=== PATIENT | female | born 1965 | race Caucasian/White ===

== ENCOUNTER 2017-11-26 07:07 | Inpatient (IN) | payer OTHER ==
[2017-11-20 14:38] VITALS: BMI 31.8
--- NOTE | 2017-11-25 09:58 | HP ---
Admitting History and Physical - Primary Care Physician PCP: Juan Carlos Rodriguez - Admission Chief Complaint: Right breast cancer with axillary nidhi metastatic dz, possible impfammatory nature History of Present Illness: 52 year old premenapausal female who presented with right breast swelling with skin changes and follow up mammogram showed subareolar thickening of breast and skin calcifications. She also developed right axillary tender nodule. She reports these changes started 2011 but accelrated 3 mos ago. 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 She is S/P neoadjuvant chemotherapy with a good response. History Source: Patient Limitations to Obtaining History: No Limitations - Past Medical History ...LMP Comment: 04/2017 ...: No Endocrine: Yes: Diabetes Mellitus - Past Surgical History Additional Past Surgical History: Right breast wide excision 04/2017 infiltrating ductal carcinoma right breast excision 2014 - Smoking History Smoking history: Never smoked Have you smoked in the past 12 months: No - Alcohol/Substance Use Hx Alcohol Use: No Home Medications - Allergies Allergies/Adverse Reactions: Allergies Allergy/AdvReac Type Severity Reaction Status Date / Time No Known Allergies Allergy Verified 11/20/17 14:14 - Home Medications Home Medications: Ambulatory Orders Calcium Carbonate/Vitamin D3 [Calcium 600+D Softgel] 1 cap PO DAILY 11/20/17 Metformin HCl 500 mg PO DAILY 11/20/17 Omeprazole 40 mg PO DAILY 11/20/17 Family Disease History - Family Disease History Family History: Denies Physical Examination Constitutional: Yes: Well Nourished Breast(s): Yes: Other (Well healed circumareolar right breast incision, Breast are diffusely nodular ,some improvement in skin changes and adenpathy) Problem List - Problems (1) Breast cancer, right Code(s): C50.911 - MALIGNANT NEOPLASM OF UNSP SITE OF RIGHT FEMALE BREAST Qualifiers: Breast location: central portion of breast Patient sex: female Assessment/Plan Right modified radical mastectomy with out reconstruction
[2017-11-26] MEDS ORDERED: LIDOCAINE HCL 1%, 10 MG/ML (20ML VIAL) ONE (08:07)
[2017-11-26] MEDS ORDERED: BUPIVACAINE HCL/PF 2.5 MG/ML - 30 ML VIAL IJ ONE (08:07)
[2017-11-26] MEDS ORDERED: PROPOFOL 20 ML ONE ×2 (08:46)
[2017-11-26] MEDS ORDERED: ROCURONIUM BROMIDE 50 MG/5 ML VIAL ONE (08:46)
[2017-11-26] MEDS ORDERED: fentaNYL CITRATE 250 MCG/5 ML VIAL ONE (08:46)
[2017-11-26] MEDS ORDERED: MIDAZOLAM HCL 2 MG/2 ML SINGLE DOSE VIAL ONE (08:46)
[2017-11-26] MEDS ORDERED: SUCCINYLCHOLINE CHLORIDE 200 MG/10 ML VIAL ONE (08:46)
[2017-11-26] MEDS ORDERED: GLYCOPYRROLATE 0.2 MG/1 ML VIAL ONE (11:02)
[2017-11-26] MEDS ORDERED: NEOSTIGMINE METHYLSULFATE 0.5 MG/ML - 10 ML MDV ONE (11:03)
[2017-11-26] MEDS ORDERED: ESMOLOL HCL 100,000 MCG/10 ML VIAL ONE (11:06)
[2017-11-26] MEDS ORDERED: hydrOXYzine HCL 100 MG/2 ML VIAL IM PRN (11:41)
[2017-11-26] MEDS ORDERED: oxyCODONE HCL 5 MG TABLET PO PRN ×3 (11:41→11:47)
[2017-11-26] MEDS ORDERED: ONDANSETRON 4 MG/2 ML VIAL IVPUSH PRN ×2 (11:41→11:47)
[2017-11-26] MEDS ORDERED: ACETAMINOPHEN 325 MG TABLET (FP) PO PRN (11:41)
[2017-11-26] MEDS ORDERED: MEPERIDINE HCL CARPU-JECT 50 MG/1 ML DISP.SYRIN IM PRN (11:41)
[2017-11-26] MEDS ORDERED: ZOLPIDEM TARTRATE 5 MG TABLET PO PRN (11:41)
[2017-11-26] MEDS ORDERED: PROMETHAZINE HCL 25 MG/1 ML VIAL IVPUSH PRN (11:47)
[2017-11-26] MEDS ORDERED: LACTATED RINGERS SOLUTION 1,000 ML IV SCH (12:00)
[2017-11-26] MEDS ORDERED: ONDANSETRON 4 MG/2 ML VIAL ONE (12:13)
--- NOTE | 2017-11-26 14:14 | CONSULT ---
Consultation: REQUESTING PROVIDER: Dr Torrez CONSULT REQUEST: We have been asked to medically evaluate this patient for ( specify). HISTORY OF PRESENT ILLNESS: Patient is a 52 y/o female with a past medical history of DM, gallstone pancreatitis (s/p cholecytectomy), right breast cancer with axillary nidhi metastic disease. patient is s/p radical masectomy, 11/26/17 (Lore). patient was noted to be hyperglycemic postoperatively. Patient reports discontinuing her metformin on 2months because she was feeling fell after chemo. REVIEW OF SYSTEMS: CONSTITUTIONAL: Absent: fever, chills, diaphoresis, generalized weakness, malaise, loss of appetite, weight change HEENT: Absent: rhinorrhea, nasal congestion, throat pain, throat swelling, difficulty swallowing, mouth swelling, ear pain, eye pain, visual changes CARDIOVASCULAR: Absent: chest pain, syncope, palpitations, irregular heart rate, lightheadedness , peripheral edema RESPIRATORY: Absent: cough, shortness of breath, dyspnea with exertion, orthopnea, wheezing, stridor, hemoptysis GASTROINTESTINAL: Absent: abdominal pain, abdominal distension, nausea, vomiting, diarrhea, constipation, melena, hematochezia GENITOURINARY: Absent: dysuria, frequency, urgency, hesitancy, hematuria, flank pain, genital pain MUSCULOSKELETAL: present: pain to the right chest Absent: myalgia, arthralgia, joint swelling, back pain, neck pain SKIN: Absent: rash, itching, pallor HEMATOLOGIC/IMMUNOLOGIC: Absent: easy bleeding, easy bruising, lymphadenopathy, frequent infections ENDOCRINE: Absent: unexplained weight gain, unexplained weight loss, heat intolerance, cold intolerance NEUROLOGIC: Absent: headache, focal weakness or paresthesias, dizziness, unsteady gait, seizure, mental status changes, bladder or bowel incontinence PSYCHIATRIC: Absent: anxiety, depression, suicidal or homicidal ideation, hallucinations. PHYSICAL EXAMINATION Vital Signs - 24 hr 11/26/17 11/26/17 11/26/17 07:48 11:43 11:45 Temperature 98.9 F 100.1 F H 100.1 F H Pulse Rate 74 81 78 Respiratory 18 14 12 Rate Blood Pressure 122/76 110/58 100/54 O2 Sat by Pulse 96 97 Oximetry (%) 11/26/17 11/26/17 11/26/17 11:50 11:55 12:00 Temperature Pulse Rate 74 79 78 Respiratory 13 13 15 Rate Blood Pressure 97/48 103/48 98/52 O2 Sat by Pulse 98 97 98 Oximetry (%) 11/26/17 11/26/17 11/26/17 12:15 12:30 12:45 Temperature 98.3 F 98.3 F Pulse Rate 85 81 78 Respiratory 15 14 13 Rate Blood Pressure 102/49 97/45 98/48 O2 Sat by Pulse 98 99 99 Oximetry (%) 11/26/17 11/26/17 13:00 13:35 Temperature 98.3 F 98.5 F Pulse Rate 74 76 Respiratory 14 20 Rate Blood Pressure 98/50 116/61 O2 Sat by Pulse 99 Oximetry (%) GENERAL: Awake, alert, and fully oriented, in no acute distress. HEAD: Normal with no signs of trauma. EYES: Pupils equal, round and reactive to light, extraocular movements intact, sclera anicteric, conjunctiva clear. No lid lag. EARS, NOSE, THROAT: Ears normal, nares patent, oropharynx clear without exudates. Moist mucous membranes. NECK: Normal range of motion, supple without lymphadenopathy, JVD, or masses. LUNGS: Breath sounds equal, clear to auscultation bilaterally. No wheezes, and no crackles. No accessory muscle use. HEART: Regular rate and rhythm, normal S1 and S2 without murmur, rub or gallop. ABDOMEN: Soft, nontender, not distended, normoactive bowel sounds, no guarding, no rebound, no masses. No hepatomegaly or splenomegaly. MUSCULOSKELETAL: Normal range of motion at all joints. No bony deformities or tenderness. No CVA tenderness. UPPER EXTREMITIES: 2+ pulses, warm, well-perfused. No cyanosis. No clubbing. Cap refill <2 seconds. No peripheral edema. LOWER EXTREMITIES: 2+ pulses, warm, well-perfused. No calf tenderness. No peripheral edema. NEUROLOGICAL: Cranial nerves II-XII intact. Normal speech. Normal gait. PSYCHIATRIC: Cooperative. Good eye contact. Appropriate mood and affect. SKIN: Warm, dry, normal turgor, no rashes or lesions noted. chest binder in place, surgical dressing intact, CDI Laboratory Results - last 24 hr 11/26/17 11/26/17 11/26/17 07:30 08:11 11:52 POC Glucometer 294 262 Urine HCG, Qual Negative Active Medications Generic Name Dose Route Start Last Admin Trade Name Freq PRN Reason Stop Dose Admin Acetaminophen 650 mg 11/26/17 11:41 Tylenol - PO Q4H PRN FEVER Fentanyl 50 mcg 11/26/17 11:47 11/26/17 12:10 Sublimaze Injection - IVPUSH 25 mcg [id number] PRN Administration PAIN-PACU ORDER X 4 DOSES ONLY Heparin Sodium (Porcine) 5,000 unit 11/27/17 08:00 Heparin - SQ BID@0800,2000 [facility] Hydroxyzine HCl 25 mg 11/26/17 11:41 Vistaril Injection - IM Q6H PRN FOR ITCHING Cefazolin Sodium 1 gram in 50 mls @ 100 mls/hr 11/26/17 15:00 Ancef 1 Gm Premixed Ivpb - IVPB 12/03/17 14:59 Q6H-IV DEO Sodium Chloride 1,000 mls @ 75 mls/hr 11/26/17 12:00 1/2 Normal Saline IV ASDIR [facility] Meperidine HCl 50 mg 11/26/17 11:41 Demerol Injection - IM Q6H PRN PAIN SCALE 8-10 Metformin HCl 500 mg 11/27/17 07:00 Glucophage - PO ACBK [facility] Ondansetron HCl 4 mg 11/26/17 11:41 11/26/17 12:12 Zofran Injection IVPUSH 4 mg Q6H PRN Administration NAUSEA AND/OR VOMITING Oxycodone HCl 5 mg 11/26/17 11:41 Roxicodone - PO Q4H PRN PAIN LEVEL 2-4 Oxycodone HCl 10 mg 11/26/17 11:47 Roxicodone - PO Q6H PRN PAIN LEVEL 5-7 Pantoprazole Sodium 40 mg 11/27/17 10:00 Protonix - PO DAILY [facility] Promethazine HCl 12.5 mg 11/26/17 11:47 Phenergan Injection - IVPUSH Q6H PRN NAUSEA-FOR RESCUE AFTER 15 MIN Zolpidem Tartrate 5 mg 11/26/17 11:41 Ambien - PO HS PRN Insomnia ASSESSMENT/PLAN: 1) heme/onc right breast CA axillary nidhi metastic s/p right radical masectomy, POD #0 - prn pain medications - incentive spirometer - monitor hgb - Dr Torrez following 2) endo DM - pt reports discontinuing metformin due to GI upset while undergoing chemo - hgb a1c on 11/21/17 was 6.8 - start fingerstick achs with regular insulin sliding scale - pending hemoglobin a1c f/e/n - diabetic diet ppx - protonix - heparin - scd Dispo: We will continue to follow the patient. Thank you for this consultative opportunity. Visit type - Emergency Visit Emergency Visit: No - New Patient This patient is new to me today: Yes Date on this admission: 11/26/17 - Critical Care Critical Care patient: No
[2017-11-26] MEDS: CEFAZOLIN 1 GM/D5W 1 GRAM/50 ML BAG IVPB SCH ×2 (15:45→21:52)
[2017-11-26] MEDS: oxyCODONE HCL 5 MG TABLET PO PRN (15:45)
[2017-11-27] MEDS: CEFAZOLIN 1 GM/D5W 1 GRAM/50 ML BAG IVPB SCH ×4 (03:00→20:46)
[2017-11-27] MEDS: metFORMIN HCL 500 MG TABLET (FP) PO SCH (06:15)
[2017-11-27] MEDS: oxyCODONE HCL 5 MG TABLET PO PRN (06:15)
[2017-11-27] MEDS ORDERED: INSULIN (NOVOLOG) ASPART 100 UNITS/ML 10ML VIAL ONE ×5 (06:24→22:05)
[2017-11-27] MEDS: INSULIN SLIDING SCALE (NOVOLOG) 1 VIAL SQ SCH ×4 (06:26→22:06)
--- NOTE | 2017-11-27 08:56 | PN ---
Progress Note, Physician Chief Complaint: Right breast cancer with axillary metastatic disease S/P Right modified radical mastectomy POD#1 History of Present Illness: patient is eating , pain manage with oxycocone prn, no nausea or vomiting, CBC pending and HGBA1C, glucose 297, seen by hospitalist on insulin sliding scale - Current Medication List Current Medications: Active Medications Acetaminophen (Tylenol -) 650 mg PO Q4H PRN PRN Reason: FEVER Heparin Sodium (Porcine) (Heparin -) 5,000 unit SQ BID@0800,2000 [facility] Hydroxyzine HCl (Vistaril Injection -) 25 mg IM Q6H PRN PRN Reason: FOR ITCHING Cefazolin Sodium (Ancef 1 Gm Premixed Ivpb -) 1 gram in 50 mls @ 100 mls/hr IVPB Q6H-IV [facility]O Stop: 12/03/17 14:59 Last Admin: 11/27/17 03:00 Dose: 100 mls/hr Sodium Chloride (1/2 Normal Saline) 1,000 mls @ 75 mls/hr IV ASDIR [facility] Insulin Aspart (Novolog Vial Sliding Scale -) 1 vial SQ ACHS [facility] PRN Reason: Protocol Last Admin: 11/27/17 06:26 Dose: 6 units Meperidine HCl (Demerol Injection -) 50 mg IM Q6H PRN PRN Reason: PAIN SCALE 8-10 Metformin HCl (Glucophage -) 500 mg PO ACBK [facility] Last Admin: 11/27/17 06:15 Dose: 500 mg Ondansetron HCl (Zofran Injection) 4 mg IVPUSH Q6H PRN PRN Reason: NAUSEA AND/OR VOMITING Last Admin: 11/26/17 12:12 Dose: 4 mg Oxycodone HCl (Roxicodone -) 5 mg PO Q4H PRN PRN Reason: PAIN LEVEL 2-4 Oxycodone HCl (Roxicodone -) 10 mg PO Q6H PRN PRN Reason: PAIN LEVEL 5-7 Last Admin: 11/27/17 06:15 Dose: 10 mg Pantoprazole Sodium (Protonix -) 40 mg PO DAILY [facility] Zolpidem Tartrate (Ambien -) 5 mg PO HS PRN PRN Reason: Insomnia - Objective Vital Signs: Vital Signs Temperature 98.7 F 11/27/17 04:00 Pulse Rate 81 11/27/17 04:00 Respiratory Rate 11/27/17 04:00 Blood Pressure 99/51 11/27/17 04:00 O2 Sat by Pulse Oximetry (%) 94 L 11/27/17 08:21 Constitutional: Yes: No Distress Breast(s): Yes: Other (Right chest wall flap viable incision intact with steristrips, no infection or echymosis, bri drain functioning well) Problem List - Problems (1) Breast cancer, right Code(s): C50.911 - MALIGNANT NEOPLASM OF UNSP SITE OF RIGHT FEMALE BREAST Qualifiers: Breast location: central portion of breast Patient sex: female Assessment/Plan CBC, HGBA1C pending cont oxycodone prn spirometry SQ heparin SDC insulin sliding scale per Hospitalist who is following her diabetes Plan for discharge tomorrow
[2017-11-27] MEDS: HEPARIN NA (PORCINE) 5,000 UNITS/ML 1ML VIAL SQ SCH ×2 (08:57→20:46)
[2017-11-27] MEDS: PANTOPRAZOLE 40 MG TABLET (FP) PO SCH (09:01)
[2017-11-27 09:23] LABS: ANION GAP 8 (8-16); BLOOD UREA NITROGEN 15 mg/dl (7-18); CALCIUM 8.9 mg/dl (8.4-10.2); CHLORIDE 98 mmol/L (98-107); CO2 24 mmol/L (22-28); GLUCOSE,RANDOM 252 mg/dl (74-106); MAGNESIUM 1.8 mg/dL (1.8-2.4); POTASSIUM 3.7 mmol/L (3.5-5.1); SODIUM 130 mmol/L (136-145)
[2017-11-27 09:35] LABS: HEMATOCRIT 31.4 % (32.4-45.2); HEMOGLOBIN 11.3 GM/dl (10.7-15.3); MCH 33.1 pg (25.7-33.7); MEAN CELL VOLUME 91.8 fl (80-96); MEAN PLT VOLUME 7.4 fl (7.5-11.1); PLATELET COUNT 187 K/MM3 (134-434); RBC 3.42 M/mm3 (3.60-5.2); RDW 13.9 % (11.6-15.6); WHITE BLOOD COUNT 7.6 K/mm3 (4.0-10.8)
[2017-11-27 09:56] LABS: CREATININE < 0.8 mg/dl (0.6-1.3)
[2017-11-27] MEDS ORDERED: PATIENT'S OWN MEDICATION (NON-FORMULARY) (Omeprazole [Omeprazole] 40 MG) PO SCH (10:00)
[2017-11-27] MEDS ORDERED: MAGNESIUM SULFATE 2 GM in SODIUM CHLORIDE 100 ML IVPB ONE (10:10)
[2017-11-27] MEDS ORDERED: MAGNESIUM SULFATE IN WATER 2 GM/50 ML IVPB IVPB ONE (10:30)
--- NOTE | 2017-11-27 12:33 | PN ---
Physical Exam: SUBJECTIVE: Patient seen and examined, sitting in bedside chair, reports pain is better controlled, tolerating meals. OBJECTIVE:Patient is a 52 y/o female with a past medical history of DM, gallstone pancreatitis (s/p cholecytectomy), right breast cancer with axillary nidhi metastic disease. patient is s/p radical masectomy, 11/26/17 (Lore). Vital Signs Period Temp Pulse Resp BP Sys/Elliott Pulse Ox Last 24 Hr 98.0 F-98.8 F 74-93 13-20 93-135/42-75 92-99 GENERAL: The patient is awake, alert, and fully oriented, in no acute distress. HEAD: Normal with no signs of trauma. EYES: PERRL, extraocular movements intact, sclera anicteric, conjunctiva clear. No ptosis. ENT: Ears normal, nares patent, oropharynx clear without exudates, moist mucous membranes. NECK: Trachea midline, full range of motion, supple. LUNGS: Breath sounds equal, clear to auscultation bilaterally, no wheezes, no crackles, no accessory muscle use. HEART: Regular rate and rhythm, S1, S2 without murmur, rub or gallop. ABDOMEN: Soft, nontender, nondistended, normoactive bowel sounds, no guarding, no rebound, no hepatosplenomegaly, no masses. EXTREMITIES: 2+ pulses, warm, well-perfused, no edema. NEUROLOGICAL: Cranial nerves II through XII grossly intact. Normal speech, gait not observed. PSYCH: Normal mood, normal affect. SKIN: chest binder in placed, JOLIE x 1 sangenous drainage, right breast, surgical dressing in place, Warm, dry, normal turgor, no rashes or lesions noted Laboratory Results - last 24 hr 11/27/17 11/27/17 11/27/17 06:19 08:30 08:30 WBC 7.6 RBC 3.42 L Hgb 11.3 Hct 31.4 L MCV 91.8 MCH 33.1 MCHC 36.0 RDW 13.9 Plt Count 187 MPV 7.4 L Sodium 130 L Potassium 3.7 Chloride 98 Carbon Dioxide 24 Anion Gap 8 BUN 15 Creatinine < 0.8 POC Glucometer 297 Random Glucose 252 H Calcium 8.9 Magnesium 1.8 11/27/17 11:44 WBC RBC Hgb Hct MCV MCH MCHC RDW Plt Count MPV Sodium Potassium Chloride Carbon Dioxide Anion Gap BUN Creatinine POC Glucometer 284 Random Glucose Calcium Magnesium Active Medications Generic Name Dose Route Start Last Admin Trade Name Freq PRN Reason Stop Dose Admin Acetaminophen 650 mg 11/26/17 11:41 Tylenol - PO Q4H PRN FEVER Heparin Sodium (Porcine) 5,000 unit 11/27/17 08:00 11/27/17 08:57 Heparin - SQ 5,000 unit BID@0800,2000 [facility] Administration Hydroxyzine HCl 25 mg 11/26/17 11:41 Vistaril Injection - IM Q6H PRN FOR ITCHING Cefazolin Sodium 1 gram in 50 mls @ 100 mls/hr 11/26/17 15:00 11/27/17 08:57 Ancef 1 Gm Premixed Ivpb - IVPB 12/03/17 14:59 100 mls/hr Q6H-IV DEO Administration Sodium Chloride 1,000 mls @ 75 mls/hr 11/26/17 12:00 1/2 Normal Saline IV ASDIR [facility] Insulin Aspart 1 vial 11/26/17 16:30 11/27/17 11:52 Novolog Vial Sliding Scale - SQ 6 units ACHS DEO Administration Protocol Meperidine HCl 50 mg 11/26/17 11:41 Demerol Injection - IM Q6H PRN PAIN SCALE 8-10 Metformin HCl 500 mg 11/27/17 07:00 11/27/17 06:15 Glucophage - PO 500 mg ACBK [facility] Administration Ondansetron HCl 4 mg 11/26/17 11:41 11/26/17 12:12 Zofran Injection IVPUSH 4 mg Q6H PRN Administration NAUSEA AND/OR VOMITING Oxycodone HCl 5 mg 11/26/17 11:41 Roxicodone - PO Q4H PRN PAIN LEVEL 2-4 Oxycodone HCl 10 mg 11/26/17 11:47 11/27/17 06:15 Roxicodone - PO 10 mg Q6H PRN Administration PAIN LEVEL 5-7 Pantoprazole Sodium 40 mg 11/27/17 10:00 11/27/17 09:01 Protonix - PO 40 mg DAILY [facility] Administration Zolpidem Tartrate 5 mg 11/26/17 11:41 Ambien - PO HS PRN Insomnia ASSESSMENT/PLAN: 1) heme/onc right breast CA axillary nidhi metastic s/p right radical masectomy, POD #1 - prn pain medications - incentive spirometer - hgb stable - Dr Torrez following 2) endo DM - pt reports discontinuing metformin due to GI upset while undergoing chemo - hgb a1c on 11/21/17 was 6.8, pending hgb a1c today - fingerstick achs with regular insulin sliding scale continue f/e/n - diabetic diet - dietary consult ppx - protonix - heparin - scd Dispo: We will continue to follow the patient. Thank you for this consultative opportunity. Visit type - Emergency Visit Emergency Visit: No - New Patient This patient is new to me today: No - Critical Care Critical Care patient: No - Discharge Referral Referred to [facility] Med P.C.: No
[2017-11-27] MEDS: SODIUM CHLORIDE 0.45% 1,000 ML IV SCH (14:58)
[2017-11-28] MEDS: CEFAZOLIN 1 GM/D5W 1 GRAM/50 ML BAG IVPB SCH ×3 (02:33→15:16)
[2017-11-28] MEDS: INSULIN SLIDING SCALE (NOVOLOG) 1 VIAL SQ SCH ×3 (06:41→17:28)
[2017-11-28] MEDS ORDERED: INSULIN (NOVOLOG) ASPART 100 UNITS/ML 10ML VIAL ONE ×2 (06:41→11:46)
[2017-11-28] MEDS: metFORMIN HCL 500 MG TABLET (FP) PO SCH (06:42)
[2017-11-28] MEDS: HEPARIN NA (PORCINE) 5,000 UNITS/ML 1ML VIAL SQ SCH (08:26)
--- NOTE | 2017-11-28 09:29 | PN ---
Progress Note, Physician Chief Complaint: S/P right MRM POD#2 History of Present Illness: Patient was seen today at the bedside and reports good pain control and appetite. - Current Medication List Current Medications: Active Medications Acetaminophen (Tylenol -) 650 mg PO Q4H PRN PRN Reason: FEVER Heparin Sodium (Porcine) (Heparin -) 5,000 unit SQ BID@0800,2000 [facility] Last Admin: 11/28/17 08:26 Dose: 5,000 unit Hydroxyzine HCl (Vistaril Injection -) 25 mg IM Q6H PRN PRN Reason: FOR ITCHING Cefazolin Sodium (Ancef 1 Gm Premixed Ivpb -) 1 gram in 50 mls @ 100 mls/hr IVPB Q6H-IV [facility] Stop: 12/03/17 14:59 Last Admin: 11/28/17 08:27 Dose: 100 mls/hr Sodium Chloride (1/2 Normal Saline) 1,000 mls @ 75 mls/hr IV ASDIR [facility] Last Admin: 11/27/17 14:58 Dose: Not Given Insulin Aspart (Novolog Vial Sliding Scale -) 1 vial SQ ACHS [facility] PRN Reason: Protocol Last Admin: 11/28/17 06:41 Dose: 4 units Meperidine HCl (Demerol Injection -) 50 mg IM Q6H PRN PRN Reason: PAIN SCALE 8-10 Metformin HCl (Glucophage -) 500 mg PO ACBK [facility] Last Admin: 11/28/17 06:42 Dose: 500 mg Ondansetron HCl (Zofran Injection) 4 mg IVPUSH Q6H PRN PRN Reason: NAUSEA AND/OR VOMITING Last Admin: 11/26/17 12:12 Dose: 4 mg Oxycodone HCl (Roxicodone -) 5 mg PO Q4H PRN PRN Reason: PAIN LEVEL 2-4 Last Admin: 11/28/17 07:16 Dose: 5 mg Oxycodone HCl (Roxicodone -) 10 mg PO Q6H PRN PRN Reason: PAIN LEVEL 5-7 Last Admin: 11/27/17 06:15 Dose: 10 mg Pantoprazole Sodium (Protonix -) 40 mg PO DAILY [facility] Last Admin: 11/27/17 09:01 Dose: 40 mg Zolpidem Tartrate (Ambien -) 5 mg PO HS PRN PRN Reason: Insomnia - Objective Vital Signs: Vital Signs Temperature 98.8 F 11/28/17 06:00 Pulse Rate 66 11/28/17 06:00 Respiratory Rate 18 11/28/17 08:51 Blood Pressure 96/47 11/28/17 06:00 O2 Sat by Pulse Oximetry (%) 95 11/28/17 08:51 Constitutional: Yes: Well Nourished, Calm Breast(s): Yes: Other (Right chest without swelling noted. Steristrips are intact without discharge or erythema noted. JPs x 2 with serosanginous drainage.) Wound/Incision: Yes: Clean/Dry Labs: CBC, BMP 11/27/17 08:30 11/27/17 08:30 Problem List - Problems (1) Breast cancer, right Code(s): C50.911 - MALIGNANT NEOPLASM OF UNSP SITE OF RIGHT FEMALE BREAST Qualifiers: Breast location: central portion of breast Patient sex: female Assessment/Plan Plan: Discharge home today and make f/u appt next week. Teach JOLIE monitoring and recording Pain meds prn and axbx at home Followup with vertica architect/PCP for monitoring of diabetes
[2017-11-28] MEDS: PANTOPRAZOLE 40 MG TABLET (FP) PO SCH (09:33)
--- NOTE | 2017-11-28 10:40 | OP ---
DATE OF OPERATION: 11/26/2017 PREOPERATIVE DIAGNOSIS: Right breast cancer. POSTOPERATIVE DIAGNOSIS: Right breast cancer. PROCEDURE: Right modified radical mastectomy with excision of incidental, intramuscular lipoma. ANESTHESIA: General . ATTENDING SURGEON: Mega Rodriguez MD POULTRY FARMER: DVEANTE Padilla ESTIMATED BLOOD LOSS: Minimal. COMPLICATIONS: None. PROCEDURE: The patient was made aware of the risks and benefits of the procedure and consented. The patient had a modified radical mastectomy, indicated by the fact that she had pre-neoadjuvant chemotherapy matted nodes with a possible inflammatory component with skin involvement. Despite being offered Plastic Surgery reconstruction and consultation, she declined and wishes to be left flat. After obtaining consent, the patient was placed in the supine position. After general anesthesia was induced, the patient was intubated. The operative site was prepped and draped in the usual sterile fashion. An elliptical incision was made around the nipple encompassing most of the skin. Using electrocautery, skin flaps were made superior to the clavicle, medial to the sternum, laterally to the latissimus dorsi, and inframammary fold. Using electrocautery, the breast tissue was taken off the pectoralis muscle, including pectoral fascia, extending laterally to the. The pectoral-clavicle fascia was incised, revealing the axillary vein. Dissecting along the chest wall, the long thoracic nerve was identified and preserved. It was dissected free and retraced medially. Laterally, the thoracodorsal trunk was identified and retracted laterally and the tissues between the two were bluntly and sharply dissected free, using hemoclips for some hemostasis as well as electrocautery. This was submitted as right modified radical mastectomy with a short suture superior, long lateral. Investigation of the axilla revealed no other suspicious lymph nodes. In the pectoralis muscle substance, there was a 4-cm, benign-appearing lipoma. The muscle fibers were split and the lipoma was bluntly dissected free and submitted as a separate specimen. Palpation of the rest of that area revealed nothing suspicious. Through inferior stab wounds, number-10 Brett-Chowdhury drains were placed and sutured to the skin with 2-0 silk. The skin was then closed with interrupted 2-0 Vicryl, followed by running 3-0 Vicryl, followed by running 4-0 Monocryl. Steri-Strips, a sterile dressing, and an Justino wrap were then applied, and the patient having tolerated the procedure well was returned to the recovery room in excellent condition. MEGA RODRIGUEZ M.D. AVILA/[id number]
[2017-11-28] MEDS: SODIUM CHLORIDE 0.45% 1,000 ML IV SCH (12:12)
[2017-11-28 17:27] VITALS: BP 120/66; PULSE 76; TEMP 98.1
--- NOTE | 2017-12-02 15:00 | PATH ---
Surgical Pathology Report Patient Name: TAWANDA SANTOS Med. Rec. #: [id number] /Age/Gender: 1965 (Age: 52) / F Account: [id number] Location: [facility]URG Taken: 11/26/2017 Received: 11/26/2017 Reported: 12/02/2017 Physicians: Juan Carlos Rodriguez M.D. Specimen(s) Received A: RIGHT INTRA-PECTORAL LIPOMA B: RIGHT MODIFIED RADICAL MASTECTOMY Clinical History Rt breast CA Final Diagnosis A. INTRA-PECTORAL LIPOMA, RIGHT, EXCISION: MATURE ADIPOSE TISSUE, CONSISTENT WITH LIPOMA. B. BREAST AND AXILLARY LYMPH NODES, RIGHT, MODIFIED RADICAL MASTECTOMY: THREE FOCI OF RESIDUAL INVASIVE DUCTAL CARCINOMA, MODERATELY TO POORLY DIFFERENTIATED RANGING FROM 1-3 MM IN GREATEST DIMENSION, MICROSCOPICALLY, PRESENT IN A BACKGROUND OF DENSE HYALINIZING FIBROSIS AND HISTIOCYTIC/ GIANT CELL REACTION, CONSISTENT WITH PRIOR TREATED TUMOR BED TISSUE. (SEE NOTE) THE TUMOR BED TISSUE IS COMPRISED PREDOMINANTLY OF HYALINIZING FIBROSIS, CONSISTENT WITH PROMINENT TREATMENT-EFFECT, WITH RESIDUAL INVASIVE CARCINOMA COMPRISING UP TO 5% OF TOTAL TUMOR BED VOLUME. FOCAL DUCTAL CARCINOMA IN SITU (DCIS), SOLID AND MICROPAPILLARY TYPE, INTERMEDIATE NUCLEAR GRADE. SURGICAL MARGINS ARE UNINVOLVED BY INVASIVE CARCINOMA AND DCIS. FOCAL LYMPHOVASCULAR INVASION IS IDENTIFIED. SKIN AND NIPPLE SHOWING DENSE DERMAL FIBROSIS, CONSISTENT WITH TREATMENT-EFFECT. METASTATIC CARCINOMA INVOLVING TWO OF THIRTY-TWO LYMPH NODES (2/32), WITH THE FOCI OF METASTATIC CARCINOMA MEASURING 2 MM AND 9 MM IN GREATEST DIMENSION, MICROSCOPICALLY. FOCAL EXTRANODAL EXTENSION IS IDENTIFIED. (SEE NOTE) PATHOLOGIC STAGE (ypTNM): ypT1a (m) ypN1a. Note: Myoepithelial immunohistochemical markers (SMM-HC and p63) and cytokeratin (AE1/3) immunostain (performed at [facility]) were used in the evaluation of one of the foci of invasive carcinoma, with the findings supporting the diagnosis. (See also prior slide review case: our case # [id number] case # [id number]). The lymph node showing the smaller focus of metastatic carcinoma also shows prominent dense hyalinizing fibrosis/scar, suggesting partial treatment-effect in a lymph node with more extensive metastatic disease. An additional lymph node also shows dense hyalinizing fibrosis/scar with no residual metastatic carcinoma, consistent with treated metastatic carcinoma. Comments Breast Invasive Carcinoma: Surgical Pathology Case Summary (Based on AJCC TNM 8 th edition) Procedure _X_ Total mastectomy (modified radical) Specimen Laterality _X_ Right Tumor Size _X_ Greatest dimension of largest invasive focus >1 mm) (millimeters): 3 mm Histologic Type _X_ Invasive carcinoma with medullary features/ invasive carcinoma NOS Histologic Grade (Ismael Histologic Score) Glandular (Acinar)/Tubular Differentiation _X_Score 2 (10 -75 % of tumor area forming glandular/tubular structures) to score 3 (<10% of tumor area forming glandular/tubular structures) Nuclear Pleomorphism _X_ Score 3 Mitotic Rate _X_ Score 2 Overall Grade _X_ Grade 2 (scores 6 or 7) to grade 3 (scores of 8 or 9) Tumor Focality _X_ Multiple foci of invasive carcinoma Number of foci: 3 Sizes of individual foci: 3 mm, 1 mm, 1 mm Ductal Carcinoma In Situ (DCIS) _X_ DCIS is present in specimen _X_ Negative for extensive intraductal component (EIC) Margins Invasive Carcinoma Margins _X_ Uninvolved by invasive carcinoma _X_ Cannot be determined: there is no ink on tissue sections with foci of residual carcinoma. DCIS Margins _X_ Uninvolved by DCIS _X_ Cannot be determined: there is no ink on tissue sections with foci of DCIS. Regional Lymph Nodes Number of Lymph Nodes with Macrometastases (>2 mm): 1 Number of Lymph Nodes with Micrometastases (>0.2 mm to 2 mm and/or >200 cells): 1 (see note) Number of Lymph Nodes with Isolated Tumor Cells (=0.2 mm and =200 cells): 0 Size of Largest Metastatic Deposit (millimeters): 9 mm Note: The lymph node with the smaller focus (2 mm) of metastatic carcinoma also shows extensive fibrosis and scarring, suggestive of more extensive metastatic involvement prior to treatment. Extranodal Extension: _X_ Present (focal) Number of Lymph Nodes Examined: 32 Number of [place] Nodes Examined: 0 Treatment Effect Treatment Effect in the Breast _X_ Probable or definite response to presurgical therapy in the invasive carcinoma Treatment Effect in the Lymph Nodes _X_ Probable or definite response to presurgical therapy in metastatic carcinoma Lymphovascular Invasion _X_ Present Pathologic Stage Classification (pTNM, AJCC 8th Edition) TNM Descriptors _X_ m (multiple foci of invasive carcinoma) _X_ y (posttreatment) Primary Tumor (Invasive Carcinoma) (pT) _X_ ypT1a (m): Tumor >1 mm but =5 mm in greatest dimension (round any measurement >1.0-1.9mm to 2 mm) Regional Lymph Nodes (pN) Modifier (required only if applicable) Category (pN) _X_ ypN1a: Metastases in 1 to 3 axillary lymph nodes, at least 1 metastasis larger than 2.0 mm Biomarker Studies Results of ER, MA ,Her2 & Ki67 studies will be reported separately in an addendum. Electronically Signed Ayala Emmanuel M.D. Addendum Reported: 12/06/2017 Addendum Diagnosis Results of ER, MA, Her2 & Ki67 studies performed on block B31 (metastatic carcinoma involving lymph node) at [place], [place] ([id number]) are as follows: ER (clone [id number] mouse monoclonal antibody by [employer]): 80 % nuclear staining with moderate to strong intensity (Positive). MA (clone16 mouse monoclonal antibody by [employer]): 0 % nuclear staining (Negative). Her2 IHC (EP3 from [employer], formerly known as [id number], using Lopez Polymer Refine detection kit): 3+ (Positive). Ki-67: 50-60% (High proliferative index). Results of ER and MA studies performed on block B13 (two foci of residual invasive carcinoma) at [facility] are as follows: Invasive carcinoma, moderately differentiated: ER (clone 6F11 mouse monoclonal antibody by [employer]): 80 % nuclear staining with moderate to strong intensity (Positive). MA (clone16 mouse monoclonal antibody by [employer]): 0 % nuclear staining (Negative). Invasive carcinoma, poorly differentiated: ER (clone 6F11 mouse monoclonal antibody by [employer]): 0 % nuclear staining (Negative). MA (clone16 mouse monoclonal antibody by [employer]): 0 % nuclear staining (Negative). Results of Her2 studies performed on block B13 (two foci of residual invasive carcinoma) at [place], [place] ([id number]) are as follows: Invasive carcinoma, moderately differentiated: Her2 IHC (EP3 from [employer], formerly known as [id number], using Loep[employer] Polymer Refine detection kit): 0 (Negative). Invasive carcinoma, poorly differentiated: Her2 IHC (EP3 from [employer], formerly known as [id number], using Lopez Polymer Refine detection kit): 3+ (Positive). Positive and negative controls (internal if applicable) show appropriate results. Formalin fixation and cold ischemic times are within current ASCO/CAP recommendations for ER, MA and Her2 testing. Ayala Emmanuel M.D. Gross Description A. Received in formalin labeled "right intrapectoral lipoma," is a 5.3 x 4.3 x 2.2 cm portion of lobulated adipose tissue. Sectioning reveals homogeneous yellow, smooth fat. No areas of hemorrhage or necrosis are identified. Probate Clerk sections are submitted in 2 cassettes. B. Received in formalin, labeled "right modified radical mastectomy," is an 853 gram, 19.0 x 15.0 x 6.5 cm. right mastectomy specimen with a short suture marking the superior aspect and a long suture marking the lateral aspect of the specimen, per the surgeon. There is a 13.5 x 7.2 x 2.0 cm axillary tail attached to the lateral portion of the specimen. The anterior surface displays a 20.5 x 12.0 cm tucker, elliptical portion of skin with a 1.6 cm in diameter nipple. The deep margin is inked black and the anterior soft tissue margin is inked blue. The specimen is serially sectioned from lateral to medial. Sectioning reveals an ill-defined 3.2 x 3.0 x 2.6 cm focus of firm, dense fibrous tissue in the retroareolar region, abutting the skin. No definitive mass is identified. Sectioning of the axillary fat reveals multiple tucker, irregular nodes ranging from 0.3-2.0 cm in greatest dimension. Probate Clerk sections are submitted in 47 cassettes as follows: 9-7-qtacvkcy sectioned nipple; 3-subareolar shave; 8-9-vjxfaacekfio submitted retroareolar dense tissue with skin; 7-44-fmmjouwbpg retroareolar tissue; 12-13-upper inner quadrant; 14-lower inner quadrant; 15-16-upper outer quadrant; 17-18-lower outer quadrant; 12-27-godrxnvopv skin; 22-anterior soft tissue margin; 23-deep margin; 24-26-one whole trisected lymph node; 27-28-one whole trisected lymph node; 29-38-one whole bisected lymph node each; 39-45-two whole lymph nodes each; 46-three whole possible lymph nodes; 47-four whole possible lymph nodes. Time to formalin fixation: 5 minutes Total formalin fixation time: Approximately 31 hours. 11/27/201711/27/2017
== END 2017-11-28 17:40 | disposition home or self-care (01) | DRG 362 ==
LOC: FM/S 07:07
PROVIDERS: ADMIT Surgery Surgical Oncology; ATTEND Surgery Surgical Oncology
PROC: 0KB Muscles, Excision (ICD-10-PCS; 2017-11-26)
PROC: 0HTT0ZZ Resection of Right Breast, Open Approach (ICD-10-PCS; principal; 2017-11-26 09:50)
DX: C50.911 Malignant neoplasm of unspecified site of right female breast (principal); C77.3 Secondary and unspecified malignant neoplasm of axilla and upper limb lymph nodes; E11.65 Type 2 diabetes mellitus with hyperglycemia; D17.79 Benign lipomatous neoplasm of other sites; Z17.1 Estrogen receptor negative status [ER-]
CPT/HCPCS: 36415; 80048; 82962; 83036; 83735; 84439; 84443; 84703; 85027; 88304-TC; 88309-TC; 88341-TC; 94010; 94760; J1644